=== PATIENT | female | born 1950 | race African-American/Black ===

== ENCOUNTER 2022-07-02 09:10 | Emergency (ER) | payer OTHER ==
[2022-07-02] MEDS ORDERED: Ketorolac Tromethamine 30 MG/ML VIAL ONE (10:05)
== END 2022-07-02 10:30 | disposition home or self-care (01) ==
LOC: ERS 09:10
DX: M25.512 Pain in left shoulder (principal); G89.29 Other chronic pain; E11.9 Type 2 diabetes mellitus without complications; I10 Essential (primary) hypertension
CPT/HCPCS: 96372; 99283; J1885

== ENCOUNTER 2023-03-31 09:12 | Emergency (ER) | payer OTHER ==
[2023-03-31 09:49] LABS: #Basophils 0.1 thou/uL (0.0-0.2); #Eosinphils 0.1 thou/uL (0.0-0.7); #Monocytes 1.1 thou/uL (0.11-0.59); #Neutrophils 3.5 thou/uL (1.40-6.50); %Basophils 0.9 % (0.0-1.0); %Eosinophils 1.7 % (0.0-10.0); %Monocytes 15.7 % (0.0-10.0); Hematocrit 23.7 % (36.0-47.0); Hemoglobin 7.7 g/dL (12.0-16.0); Mean Corpuscular HGB CONC 32.5 g/dL (32.0-36.0); Mean Corpuscular Hemoglobin 32.8 pg (27.0-31.0); Mean Corpuscular Volume 100.9 fl (78.0-98.0); Mean Platelet Volume 9.9 fL (7.4-10.4); Platelet Count 245 10x3/uL (130-400); RBC Distribution Width 18.3 % (11.5-14.5); Red Blood Cell (RBC) Count 2.35 mill/uL (4.20-5.40); White Blood Cell (WBC) Count 6.9 10x3/uL (4.8-10.8)
== END 2023-03-31 10:12 | disposition home or self-care (01) ==
LOC: ERS 09:12
DX: D63.8 Anemia in other chronic diseases classified elsewhere (principal); E11.9 Type 2 diabetes mellitus without complications; I10 Essential (primary) hypertension
CPT/HCPCS: 36415; 85025; 86850; 86900; 86901; 94760; 99284

== ENCOUNTER 2023-04-22 09:56 | Emergency (ER) | payer OTHER | END 2023-04-22 11:32 | disposition home or self-care (01) | LOC: ERS 09:56 | DX: M79.641 Pain in right hand (principal); G89.29 Other chronic pain; E11.9 Type 2 diabetes mellitus without complications; I10 Essential (primary) hypertension ==

== ENCOUNTER 2023-04-26 10:57 | Emergency (ER) | payer OTHER | END 2023-04-26 12:55 | disposition home or self-care (01) | LOC: ERS 10:57 | DX: M79.642 Pain in left hand (principal); E11.9 Type 2 diabetes mellitus without complications; I10 Essential (primary) hypertension | CPT/HCPCS: 99283 ==

== ENCOUNTER 2023-06-18 15:08 | Emergency (ER) | payer OTHER | END 2023-06-18 16:58 | disposition home or self-care (01) | LOC: ERS 15:08 | DX: M25.531 Pain in right wrist (principal); M25.532 Pain in left wrist; E11.9 Type 2 diabetes mellitus without complications; I10 Essential (primary) hypertension; Z79.84 Long term (current) use of oral hypoglycemic drugs | CPT/HCPCS: 99283 ==

== ENCOUNTER 2023-12-20 15:18 | Emergency (ER) | payer OTHER ==
[2023-12-20] MEDS ORDERED: Ketorolac Tromethamine 30 MG (1 mL) VIAL ONE (16:21)
== END 2023-12-20 16:42 | disposition home or self-care (01) ==
LOC: ERS 15:18
DX: G89.29 Other chronic pain (principal); M25.511 Pain in right shoulder; I10 Essential (primary) hypertension; E11.9 Type 2 diabetes mellitus without complications; I25.2 Old myocardial infarction; R54 Age-related physical debility
CPT/HCPCS: 96372; J1885

== ENCOUNTER 2024-01-23 18:27 | Emergency (ER) | payer OTHER | END 2024-01-23 21:30 | disposition home or self-care (01) | LOC: ERS 18:27 | DX: S93.401A Sprain of unspecified ligament of right ankle, initial encounter (principal); E11.9 Type 2 diabetes mellitus without complications; I10 Essential (primary) hypertension; I25.2 Old myocardial infarction; W22.8XXA Striking against or struck by other objects, initial encounter ==

== ENCOUNTER 2024-03-06 12:40 | Inpatient (IN) | payer OTHER, MEDICAID ==
[~2024-03-06 12:40] MED LIST: Iopamidol-370 76% 500 ML MDV (1 ML CHARGE) ONE
[2024-03-06] MEDS ORDERED: diphenhydrAMINE 50 MG/ML VIAL ONE (13:30)
[2024-03-06] MEDS ORDERED: Ondansetron PF 4 MG/2 ML Vial ONE (13:30)
[2024-03-06] MEDS ORDERED: Cefepime 2 GM VIAL ONE (13:30)
[2024-03-06] MEDS ORDERED: methylPREDNISolone Sod Succ 40 MG VIAL ONE (13:30)
[2024-03-06] MEDS ORDERED: Famotidine/PF 20 mg/2ml Vial ONE (13:33)
[2024-03-06 13:40] LABS: #Basophils 0.04 10x3/uL (0.0-0.2); #Eosinphils Less than 0.03 10x3/uL (0.0-0.7); %Basophils 0.3 % (0.0-1.0); %Eosinophils 0.2 % (0.0-10.0); %Lymphocytes 18.5 % (21.0-51.0); %Monocytes 15.6 % (0.0-10.0); %Neutrophils 64.6 % (42.0-75.0); Hematocrit 30.7 % (36.0-47.0); Hemoglobin 10.3 g/dL (12.0-16.0); Mean Corpuscular HGB CONC 33.6 g/dL (32.0-36.0); Mean Corpuscular Volume 92.5 fL (78.0-98.0); Mean Platelet Volume 9.8 fL (7.4-10.4); Platelet Count 240 10x3/uL (130-400); RBC Distribution Width 13.1 % (11.5-14.5); Red Blood Cell (RBC) Count 3.32 mill/uL (4.20-5.40)
[2024-03-06] MEDS ORDERED: Acetaminophen 500 MG TAB ONE (13:50)
[2024-03-06 14:10] LABS: ALT (SGPT) 17 U/L (8-55); AST (SGOT) 40 U/L (5-34); Alkaline Phosphatase 82 U/L (40-110); Anion Gap 21 mmol/L (10-20); BUN (Urea Nitrogen) 11 mg/dL (9.8-20.1); Bilirubin, Total 0.7 mg/dL (0.2-1.2); Calc. Creatinine Clearance 0 mL/min (70-130); Carbon Dioxide 19 mmol/L (23-31); Chloride 99 mmol/L (98-107); Estimated GFR 67; Globulin 5.2 g/dL (2.4-3.5); Glucose 80 mg/dL (83-110); Lipase 21 U/L (8-78); Potassium 5.7 mmol/L (3.5-5.1); Protein, Total 8.2 g/dL (5.8-8.1); Sodium 133 mmol/L (136-145)
[2024-03-06] MEDS ORDERED: Ondansetron ODT 4 MG TAB PO PRN (16:16)
[2024-03-06] MEDS ORDERED: Bisacodyl 5 MG TAB PO PRN (16:16)
[2024-03-06 17:26] LABS: Bilirubin Negative (Negative); Blood, Urine 1+ (Negative); CAUTI Indications for Culture Dysuria,urgency,freq; Clarity Turbid (Clear); Glucose, Urine (Dipstick) Normal (Negative); Ketone, Urine 20 mg/dL (Negative); Leukocyte 500 Leu/uL (Negative); Nitrite Negative (Negative); Protein, Urine (Dipstick) 30 mg/dL (Neg-Trace); Specific Gravity, Urine 1.033 (1.002-1.036); Squamous Epithelial 0-3 HPF (0-3); Urobilinogen Normal mg/dL (Less than 2); WBC/HPF Greater than 50 HPF (0-3)
[2024-03-06 17:41] LABS: Bacteria/HPF 4+ HPF (None Seen)
[2024-03-06 17:42] LABS: Urine Culture Reflex Yes Yes
[2024-03-06 17:47] VITALS: BMI 32.3
[2024-03-06] MEDS: Vancomycin (BATCH) 1.5 GM in Premix 1 BAG IVPB SCH (17:50)
[2024-03-06] MEDS: Lactated Ringer's 1,000 ML IV SCH ×2 (17:54→18:08)
[2024-03-06 18:49] LABS: Hemoglobin A1c 6.3 % (4.0-6.0)
[2024-03-06 21:58] LABS: Anion Gap 17 mmol/L (10-20); BUN (Urea Nitrogen) 16 mg/dL (9.8-20.1); Calc. Creatinine Clearance 81 mL/min (70-130); Calcium 9.5 mg/dL (7.8-10.44); Carbon Dioxide 19 mmol/L (23-31); Chloride 105 mmol/L (98-107); Estimated GFR 68; Glucose 114 mg/dL (83-110); Sodium 137 mmol/L (136-145)
[2024-03-06] MEDS: Acetaminophen 325 MG TAB PO SCH (22:37)
[2024-03-07] MEDS: Cefepime 2 GM in Sodium Chloride 0.9% 100 ML IVPB SCH (00:34)
[2024-03-07] MEDS ORDERED: Vancomycin 1.25 GM in Sodium Chloride 0.9% 250 ML 250 ML IVPB SCH (03:15)
[2024-03-07] MEDS: Vancomycin 1 GM in Premix 1 BAG IVPB SCH (05:21)
[2024-03-07 06:05] LABS: Vancomycin, Random 13.4 ug/mL (See Comment)
[2024-03-07 06:10] LABS: ALT (SGPT) 15 U/L (8-55); AST (SGOT) 26 U/L (5-34); Albumin 2.6 g/dL (3.4-4.8); Alkaline Phosphatase 83 U/L (40-110); Anion Gap 19 mmol/L (10-20); BUN (Urea Nitrogen) 18 mg/dL (9.8-20.1); Bilirubin, Total 0.4 mg/dL (0.2-1.2); Calc. Creatinine Clearance 83 mL/min (70-130); Calcium 9.7 mg/dL (7.8-10.44); Carbon Dioxide 16 mmol/L (23-31); Chloride 106 mmol/L (98-107); Estimated GFR 70; Globulin 4.4 g/dL (2.4-3.5); Glucose 105 mg/dL (83-110); Potassium 4.6 mmol/L (3.5-5.1); Sodium 136 mmol/L (136-145)
[2024-03-07 06:28] LABS: #Basophils 0.03 10x3/uL (0.0-0.2); #Eosinphils Less than 0.03 10x3/uL (0.0-0.7); %Basophils 0.3 % (0.0-1.0); %Eosinophils 0.1 % (0.0-10.0); %Monocytes 4.5 % (0.0-10.0); %Neutrophils 75.8 % (42.0-75.0); Hematocrit 34.4 % (36.0-47.0); Hemoglobin 10.9 g/dL (12.0-16.0); Mean Corpuscular HGB CONC 31.7 g/dL (32.0-36.0); Mean Corpuscular Hemoglobin 30.8 pg (27.0-31.0); Mean Corpuscular Volume 97.2 fL (78.0-98.0); Mean Platelet Volume 10.5 fL (7.4-10.4); Platelet Count 242 10x3/uL (130-400); RBC Distribution Width 12.8 % (11.5-14.5); Red Blood Cell (RBC) Count 3.54 mill/uL (4.20-5.40)
[2024-03-07] MEDS: Enoxaparin 40 MG (0.4 mL) SYRINGE SC SCH (09:46)
[2024-03-07] MEDS: HYDROcodone/Acetaminophen 7.5/325 mg Tablet PO PRN (13:07)
[2024-03-07] MEDS ORDERED: Bisacodyl 5 MG TAB PO PRN (13:49)
[2024-03-07] MEDS: metFORMIN 500 MG TAB PO SCH (17:13)
[2024-03-07] MEDS: Vancomycin HCl 750 MG in Sodium Chloride 0.9% 250 ML 250 ML IVPB SCH (17:13)
[2024-03-07] MEDS: Mometasone 100 MCG/Formoterol 5 MCG 120 PUFF INHALER INH SCH (19:31)
[2024-03-07] MEDS ORDERED: Clindamycin/D5W 300 MG/50 ML BAG IVPB SCH (21:00)
[2024-03-07] MEDS: Atenolol 50 MG TAB PO SCH (21:21)
[2024-03-07] MEDS: Clindamycin/D5W 600 MG in Premix 1 BAG IVPB SCH (21:21)
[2024-03-07] MEDS: Atorvastatin Calcium 10 MG TAB PO SCH (21:21)
[2024-03-07] MEDS: Azelastine 137 MCG/NASAL Spray 30 ML NS SCH (21:22)
[2024-03-07] MEDS: Brimonidine Tartrate 0.2% Ophth Soln 5 ml Bottle EA EYE SCH (21:23)
[2024-03-07] MEDS: Dorzolamide HCl 2% Ophth (10 mL) Bottle EA EYE SCH (21:23)
[2024-03-08 05:23] LABS: #Basophils 0.03 10x3/uL (0.0-0.2); %Basophils 0.3 % (0.0-1.0); %Eosinophils 0.3 % (0.0-10.0); %Lymphocytes 27.4 % (21.0-51.0); %Monocytes 10.1 % (0.0-10.0); %Neutrophils 60.7 % (42.0-75.0); Hematocrit 27.5 % (36.0-47.0); Hemoglobin 9.2 g/dL (12.0-16.0); Mean Corpuscular HGB CONC 33.5 g/dL (32.0-36.0); Mean Corpuscular Hemoglobin 31.9 pg (27.0-31.0); Mean Corpuscular Volume 95.5 fL (78.0-98.0); Platelet Count 248 10x3/uL (130-400); RBC Distribution Width 13.2 % (11.5-14.5); Red Blood Cell (RBC) Count 2.88 mill/uL (4.20-5.40)
[2024-03-08 05:58] LABS: ALT (SGPT) 15 U/L (8-55); AST (SGOT) 22 U/L (5-34); Albumin 2.4 g/dL (3.4-4.8); Alkaline Phosphatase 64 U/L (40-110); Anion Gap 9 mmol/L (10-20); BUN (Urea Nitrogen) 20 mg/dL (9.8-20.1); Bilirubin, Total 0.3 mg/dL (0.2-1.2); Calc. Creatinine Clearance 86 mL/min (70-130); Calcium 8.8 mg/dL (7.8-10.44); Carbon Dioxide 22 mmol/L (23-31); Chloride 108 mmol/L (98-107); Estimated GFR 73; Globulin 3.7 g/dL (2.4-3.5); Glucose 105 mg/dL (83-110); Potassium 3.4 mmol/L (3.5-5.1); Protein, Total 6.1 g/dL (5.8-8.1); Sodium 136 mmol/L (136-145)
[2024-03-08] MEDS: Pantoprazole DR 40 MG TAB PO SCH (08:38)
[2024-03-08] MEDS ORDERED: HYDROcodone/Acetaminophen 7.5/325 mg Tablet PO PRN (11:38)
[2024-03-08] MEDS ORDERED: Acetaminophen 325 MG TAB PO PRN (11:39)
[2024-03-08] MEDS: Potassium Chloride 20 MEQ TAB PO SCH (12:25)
[2024-03-08] MEDS: Cefepime 1 GM in Sodium Chloride 0.9% 100 ML IVPB SCH (12:26)
[2024-03-09 05:18] LABS: #Basophils 0.05 10x3/uL (0.0-0.2); %Basophils 0.7 % (0.0-1.0); %Eosinophils 1.2 % (0.0-10.0); %Lymphocytes 33.1 % (21.0-51.0); %Monocytes 9.5 % (0.0-10.0); %Neutrophils 52.9 % (42.0-75.0); Hematocrit 30.2 % (36.0-47.0); Hemoglobin 9.7 g/dL (12.0-16.0); Mean Corpuscular HGB CONC 32.1 g/dL (32.0-36.0); Mean Corpuscular Hemoglobin 30.4 pg (27.0-31.0); Mean Corpuscular Volume 94.7 fL (78.0-98.0); Mean Platelet Volume 9.9 fL (7.4-10.4); Platelet Count 257 10x3/uL (130-400); RBC Distribution Width 13.2 % (11.5-14.5); Red Blood Cell (RBC) Count 3.19 mill/uL (4.20-5.40)
[2024-03-09 05:31] LABS: ALT (SGPT) 14 U/L (8-55); AST (SGOT) 19 U/L (5-34); Albumin 2.4 g/dL (3.4-4.8); Alkaline Phosphatase 64 U/L (40-110); Anion Gap 11 mmol/L (10-20); BUN (Urea Nitrogen) 13 mg/dL (9.8-20.1); Bilirubin, Total 0.4 mg/dL (0.2-1.2); Calc. Creatinine Clearance 97 mL/min (70-130); Calcium 8.9 mg/dL (7.8-10.44); Carbon Dioxide 21 mmol/L (23-31); Chloride 109 mmol/L (98-107); Estimated GFR 85; Globulin 3.7 g/dL (2.4-3.5); Glucose 82 mg/dL (83-110); Potassium 3.5 mmol/L (3.5-5.1); Protein, Total 6.1 g/dL (5.8-8.1); Sodium 137 mmol/L (136-145)
[2024-03-09] MEDS: Cefepime 2 GM in Sodium Chloride 0.9% 100 ML IVPB SCH (12:58)
[2024-03-09 16:45] VITALS: BP 174/83; TEMP 98.1
== END 2024-03-09 18:17 | disposition home or self-care (01) | DRG 871 ==
LOC: ERS 12:40 → MSONC 16:31
PROVIDERS: ADMIT Family Medicine; ATTEND Family Medicine
DX: A41.9 Sepsis, unspecified organism (principal); G93.41 Metabolic encephalopathy; L03.115 Cellulitis of right lower limb; E87.20 Acidosis, unspecified; E11.9 Type 2 diabetes mellitus without complications; E87.5 Hyperkalemia; N30.90 Cystitis, unspecified without hematuria; I10 Essential (primary) hypertension; J44.9 Chronic obstructive pulmonary disease, unspecified; M06.9 Rheumatoid arthritis, unspecified; M81.0 Age-related osteoporosis without current pathological fracture; I25.2 Old myocardial infarction; Z95.5 Presence of coronary angioplasty implant and graft; Z88.0 Allergy status to penicillin; Z88.8 Allergy status to other drugs, medicaments and biological substances; Z98.890 Other specified postprocedural states; Z90.49 Acquired absence of other specified parts of digestive tract
CPT/HCPCS: 36415; 36416; 71045; 74177; 80053; 80202; 81001; 83036; 83605; 83690; 84145; 84443; 84484; 85025; 86141; 86850; 86900; 86901; 87040; 87077; 87086; 87186; 93005; 94664; 97139; J0692; J1200; J1650; J2405; J2919; J3370; J3370-JW; J3490; J7050; J7120; Q9967

== ENCOUNTER 2025-03-26 14:22 | Emergency (ER) | payer OTHER | END 2025-03-26 17:00 | disposition home or self-care (01) | LOC: ERS 14:22 | DX: S32.049A Unspecified fracture of fourth lumbar vertebra, initial encounter for closed fracture (principal); E11.9 Type 2 diabetes mellitus without complications; I10 Essential (primary) hypertension; I25.2 Old myocardial infarction; W01.0XXA Fall on same level from slipping, tripping and stumbling without subsequent striking against object, initial encounter | CPT/HCPCS: 72131; 72192 ==